=== PATIENT | female | born 1995 | race Caucasian/White ===

== ENCOUNTER 2020-02-04 12:31 | Emergency (ER) | payer MEDICAID ==
[~2020-02-04] VITALS: Ht 167.6 cm; Wt 145.6 kg
[2020-02-04 12:45] VITALS: Ht 167.6 cm; Wt 145.6 kg
[2020-02-04 14:37] VITALS: BP 108/71
== END 2020-02-04 14:37 | disposition home or self-care (01) ==
LOC: ED 12:31
DX: S09.90XA Unspecified injury of head, initial encounter (principal); F07.81 Postconcussional syndrome; W22.8XXA Striking against or struck by other objects, initial encounter; Y93.89 Activity, other specified; Y92.89 Other specified places as the place of occurrence of the external cause; Y99.8 Other external cause status